=== PATIENT | female | born 1965 ===

== ENCOUNTER 2017-12-21 07:50 | Day surgery (SDC) | payer OTHER | END 2017-12-21 13:00 | disposition home or self-care (01) | LOC: AMB-ENDOS 07:50 | DX: K62.1 Rectal polyp (principal); Z85.048 Personal history of other malignant neoplasm of rectum, rectosigmoid junction, and anus; K92.1 Melena; K64.1 Second degree hemorrhoids; K52.89 Other specified noninfective gastroenteritis and colitis ==

== ENCOUNTER 2019-10-24 08:26 | Day surgery (SDC) | payer OTHER | END 2019-10-24 13:15 | disposition home or self-care (01) | LOC: AMB-ENDOS 08:26 | DX: C44.520 Squamous cell carcinoma of anal skin (principal); K57.30 Diverticulosis of large intestine without perforation or abscess without bleeding ==

== ENCOUNTER 2025-02-10 05:34 | Day surgery (SDC) | payer OTHER ==
[2025-02-10] MEDS ORDERED: MIDAZOLAM HCL 2 MG/2 ML VIAL IV ONE (10:45)
[2025-02-10] MEDS ORDERED: DIPHENHYDRAMINE HCL 50 MG/ML VIAL 1ML IV ONE (10:45)
[2025-02-10] MEDS ORDERED: fentaNYL CITRATE 50 MCG/ML AMPUL IV PUSH ONE (10:45)
[2025-02-10] MEDS ORDERED: FLUMAZENIL 0.5 MG/5 ML ML IV ONE (11:00)
== END 2025-02-10 12:05 | disposition home or self-care (01) ==
LOC: AMB-ENDOS 05:34
PROVIDERS: ATTEND Colon & Rectal Surgery
DX: C44.520 Squamous cell carcinoma of anal skin (principal); K29.50 Unspecified chronic gastritis without bleeding; K44.9 Diaphragmatic hernia without obstruction or gangrene; K58.0 Irritable bowel syndrome with diarrhea; K57.30 Diverticulosis of large intestine without perforation or abscess without bleeding; Z91.040 Latex allergy status; Z85.048 Personal history of other malignant neoplasm of rectum, rectosigmoid junction, and anus